=== PATIENT | male | born 1950 | race Native Hawaiian/Other Pacific Islander ===

== ENCOUNTER 2018-05-18 21:01 | Emergency (ER) | payer OTHER ==
[~2018-05-18] VITALS: Ht 182.9 cm; Wt 99.3 kg
[2018-05-18 21:17] LABS: PLATELET COUNT 283 K/uL (142-355)
[2018-05-18 21:47] LABS: POTASSIUM 3.7 mmol/L (3.6-5.2)
[2018-05-18 22:25] VITALS: TEMP 97.7
[2018-05-18 22:42] VITALS: BP 142/82
[2018-05-19] MEDS ORDERED: FAMOTIDINE20 MG PO (05:04)
[2018-05-19] MEDS ORDERED: CITALOPRAM20 M1 PO (05:04)
[2018-05-19] MEDS ORDERED: GRALISE600 MG PO (05:05)
[2018-05-19] MEDS ORDERED: XARELTO20 MG PO (05:06)
[2018-05-19] MEDS ORDERED: METO50TA27 PO (05:06)
[2018-05-19] MEDS ORDERED: TYLENOL325 MG PO (05:06)
[2018-05-19] MEDS ORDERED: POT CHLORIDE10 MEQ PO (05:07)
[2018-05-19] MEDS ORDERED: FURO40TA93 PO (05:07)
[2018-05-19] MEDS ORDERED: EZETIMIBE10 MG PO (05:08)
[2018-05-19] MEDS ORDERED: IMIQUIMOD5 % EX (05:08)
[2018-05-19] MEDS ORDERED: OMEGA 31000 MG PO (05:09)
[2018-05-19] MEDS ORDERED: SIMV20TA2 PO (05:09)
[2018-05-19] MEDS ORDERED: OXYC5TAB24 PO (05:10)
== END 2018-05-18 22:44 | disposition other institution (70) ==
LOC: ED 21:01
PROVIDERS: Emergency Medicine
DX: R46.89 Other symptoms and signs involving appearance and behavior (principal); I48.91 Unspecified atrial fibrillation; Z04.6 Encounter for general psychiatric examination, requested by authority
CPT/HCPCS: 36415; 80053; 81000; 85027; 93005; 99285